=== PATIENT | female | born 1960 | race Caucasian/White ===

== ENCOUNTER 2018-10-23 07:04 | Day surgery (SDC) | payer OTHER ==
[~2018-10-23] VITALS: Ht 162.6 cm; Wt 85.3 kg
[~2018-10-23 07:04] MED LIST: CEFAZOLIN SOD 1 GM in D5W 50 ML IV ONE
[2018-10-23] MEDS ORDERED: DEXAMETHASONE SOD PHOSPHATE 4 MG/ML VIAL IVP ONE (07:35)
[2018-10-23] MEDS ORDERED: METOCLOPRAMIDE HCL 10 MG/2 ML VIAL IVP ONE (07:35)
[2018-10-23] MEDS ORDERED: ONDANSETRON HCL 4 MG/2 ML VIAL IVP ONE (07:35)
[2018-10-23] MEDS ORDERED: KETOROLAC TROMETHAMINE 30 MG VIAL IVP ONE (07:35)
[2018-10-23] MEDS ORDERED: ROCURONIUM BROMIDE 10 MG/ML (ZEMURON) IV ONE (07:35)
[2018-10-23] MEDS ORDERED: fentaNYL CITRATE 250 MCG/5 ML AMP IV ONE (07:35)
[2018-10-23] MEDS ORDERED: MIDAZOLAM HCL 5 MG/5 ML VIAL IVP ONE (07:35)
[2018-10-23] MEDS ORDERED: LR 1,000 ML IV.SOLN IV ONE (07:35)
[2018-10-23] MEDS ORDERED: SEVOFLURANE 15 MIN GAS INH ONE (07:35)
[2018-10-23] MEDS ORDERED: PROPOFOL 200MG/ 20ML VIAL (DIPRIVAN) IV ONE (07:35)
[2018-10-23] MEDS ORDERED: LR 1,000 ML IV SCH (08:20)
[2018-10-23] MEDS ORDERED: MEPERIDINE HCL/PF 25 MG/ML DISP.SYRIN IVP PRN (08:30)
[2018-10-23] MEDS ORDERED: HYDROmorphone 2 MG/ML VIAL IVP PRN ×3 (08:30)
[2018-10-23] MEDS ORDERED: D5/0.45 NS 1,000 ML IV SCH (08:37)
[2018-10-23] MEDS ORDERED: HYDROmorphone 1 MG INJ. 1 MG/ML AMPUL IVP PRN (08:45)
[2018-10-23] MEDS ORDERED: HYDROcodone/ACETAMIN 5-325 MG TAB (NORCO/ VICODIN) PO PRN ×2 (08:45)
[2018-10-23 09:39] VITALS: BP_SYST 120
== END 2018-10-23 10:50 | disposition home or self-care (01) ==
LOC: SDS 07:04
PROVIDERS: ATTEND Colon & Rectal Surgery
DX: L72.8 Other follicular cysts of the skin and subcutaneous tissue (principal); M71.342 Other bursal cyst, left hand; M71.341 Other bursal cyst, right hand; I10 Essential (primary) hypertension; E78.5 Hyperlipidemia, unspecified; F41.9 Anxiety disorder, unspecified; F41.8 Other specified anxiety disorders; M54.5 Low back pain; G89.29 Other chronic pain; J30.9 Allergic rhinitis, unspecified; E04.2 Nontoxic multinodular goiter; E66.9 Obesity, unspecified; M72.2 Plantar fascial fibromatosis; Z98.890 Other specified postprocedural states; Z90.710 Acquired absence of both cervix and uterus; Z68.32 Body mass index [BMI] 32.0-32.9, adult; Z88.8 Allergy status to other drugs, medicaments and biological substances; Z80.0 Family history of malignant neoplasm of digestive organs; Z80.41 Family history of malignant neoplasm of ovary; D23.60 Other benign neoplasm of skin of unspecified upper limb, including shoulder
CPT/HCPCS: 11420; 11421; 88305; J0690; J7060; J7120; 88304; J1100; J1885; J2250; J2405; J2704; J2765; J3010